=== PATIENT | female | born 1975 | race Caucasian/White ===

== ENCOUNTER → 2021-02-01 | Outpatient (CLI) | payer OTHER ==
[~2021-02-01] MED LIST: DOCU-109 PO; FERR325T14 PO; GABA300C18 PO; MEDR10TA PO; OMEP20TA8 PO; OXYC1TAB15 PO
== END ==
LOC: LAB 10:13
PROVIDERS: ATTEND Obstetrics & Gynecology
DX: Z01.812 Encounter for preprocedural laboratory examination (principal); Z20.822 Contact with and (suspected) exposure to COVID-19
CPT/HCPCS: U0003; U0005

== ENCOUNTER 2021-02-04 08:25 | Observation (INO) | payer OTHER ==
[2021-02-04] VITALS (11 sets, daily range): BP systolic 85–106; BP diastolic 42–63
[~2021-02-04] VITALS: Ht 167.6 cm; Wt 90.0 kg
[~2021-02-04 08:25] MED LIST changes: -DOCU-109 PO; -GABA300C18 PO; +IV RINGERS,LACTATED 1000ML 1,000 ML IV SCH; -OXYC1TAB15 PO; +PROCHLORPERAZINE 10 MG/2 ML VIAL. IVP PRN; +fentaNYL PF VIAL 100 MCG/2 ML VIAL IVP PRN
[2021-02-04] MEDS ORDERED: PROPOFOL 10 MG/ML (20ML) VIAL. IV ONE (09:11)
[2021-02-04] MEDS ORDERED: LIDOCAINE 2% PF 5 ML VIAL. ONE (09:11)
[2021-02-04] MEDS ORDERED: SUCCINYLCHOLINE 200 MG/10 ML VIAL. ONE (09:12)
[2021-02-04] MEDS ORDERED: fentaNYL PF VIAL 100 MCG/2 ML VIAL ONE (09:12)
[2021-02-04] MEDS ORDERED: ROCURONIUM 50 MG/5 ML VIAL. ONE (09:12)
[2021-02-04 09:24] LABS: BASO # 0.1 x10^3/uL (0.0-0.2); BASO % 3 % (0-3); EOS # 0.2 x10^3/uL (0.0-0.7); EOS % 4 % (0-3); HEMATOCRIT 32.9 % (36.0-47.0); HEMOGLOBIN 10.5 g/dL (12.0-15.5); LYMPH # 1.3 x10^3/uL (1.0-4.8); LYMPH % 28 % (24-48); MEAN CORPUSCULAR HEMOGLOBIN 26 pg (25-35); MEAN CORPUSCULAR HGB CONC 32 g/dL (31-37); MEAN CORPUSCULAR VOLUME 81 fL (79-100); MONO # 0.4 x10^3/uL (0.0-1.1); MONO % 10 % (0-9); NEUT # 2.6 x10^3/uL (1.8-7.7); NEUT % 56 % (31-73); PLATELET COUNT 229 x10^3/uL (140-400); RED BLOOD COUNT 4.05 x10^6/uL (3.50-5.40); RED CELL DISTRIBUTION WIDTH 19.6 % (11.5-14.5); WHITE BLOOD COUNT 4.6 x10^3/uL (4.0-11.0)
[2021-02-04] MEDS ORDERED: LIDOCAINE 1%/EPI 1:100,000 20 ML VIAL. ONE (10:06)
[2021-02-04] MEDS ORDERED: INDIGOTINDISULFONATE SODIUM 40 MG/5 ML AMPUL. ONE (10:06)
[2021-02-04] MEDS ORDERED: DESFLURANE 31 TO 60 MINUTES IH ONE (10:49)
[2021-02-04] MEDS ORDERED: DEXAMETHASONE SOD PHOS 4 MG/ML VIAL ONE (10:49)
[2021-02-04] MEDS ORDERED: ONDANSETRON PF 4 MG/2 ML VIAL. ONE (11:08)
[2021-02-04] MEDS ORDERED: NEOSTIGMINE METHYLSULFATE 5 MG/5 ML SYRINGE. ONE (11:08)
[2021-02-04] MEDS ORDERED: GLYCOPYRROLATE 1 MG/5 ML VIAL. ONE (11:08)
[2021-02-04] MEDS ORDERED: ESTROGENS, CONJ VAGINAL CREAM 30GM TUBE. ONE (11:18)
--- NOTE | 2021-02-04 11:34 | PDOC ---
BRIEF OPERATIVE NOTE Date: February 04, 2021 Pre-Op Diagnosis 1. Fibroids 2. Menorrhagia 3. VERONICA 1 Post-Op Diagnosis SAme Procedure Performed TVH & BSO Surgeon Dr. Pavon Transportation Department Head Gold And Silver Assayer: Jake Anesthesia Type: General Blood Loss 50 ml Specimens Obtained cervix, uterus, lon. fallopian tubes and ovaries Findings enlarged uterus, VERONICA 1; nml fallopian tubes and ovaries lon. Complications none Operative Note see dictation JULIA PAVON Jr, MD February 04, 2021 11:34
[2021-02-04] MEDS ORDERED: ONDANSETRON PF 4 MG/2 ML VIAL. IV PRN (11:45)
[2021-02-04] MEDS ORDERED: ZOLPIDEM 5 MG TABLET. PO PRN (11:45)
[2021-02-04] MEDS ORDERED: DEXTROSE 50% 25 GM / 50ML DISP.SYRIN. IV PRN (11:45)
[2021-02-04] MEDS ORDERED: CALCIUM CARBONATE 500 MG TAB.CHEW PO PRN (11:45)
[2021-02-04] MEDS ORDERED: SIMETHICONE 80 MG TAB.CHEW PO PRN (11:45)
[2021-02-04] MEDS ORDERED: OPIUM/BELLADONNA 30/16.2MG SUPP.RECT. PR PRN (11:45)
[2021-02-04] MEDS ORDERED: diphenhydrAMINE HCL 25 MG CAPSULE PO PRN (11:45)
[2021-02-04] MEDS ORDERED: 0.9 % SODIUM CHLORIDE 10 ML DISP.SYRIN. IV PRN (11:45)
[2021-02-04] MEDS ORDERED: diphenhydrAMINE 50 MG/ML VIAL IV PRN (11:45)
[2021-02-04] MEDS ORDERED: PROCHLORPERAZINE 10 MG/2 ML VIAL. IV PRN (11:45)
[2021-02-04] MEDS ORDERED: MORPHINE SULFATE 2 MG/ML VIAL. ONE (12:00)
[2021-02-04] MEDS: MORPHINE SULFATE 2 MG/ML VIAL. IVP PRN ×2 (12:03→12:16)
[2021-02-04] MEDS: HYDROmorphone 2 MG/ML VIAL IVP PRN ×2 (12:12→12:23)
[2021-02-04] MEDS ORDERED: HYDROmorphone 2 MG/ML VIAL ONE (12:27)
[2021-02-04] MEDS: KETOROLAC 30 MG/ML VIAL. IV PRN ×2 (14:08→22:49)
[2021-02-04] MEDS: GABAPENTIN 300 MG CAPSULE. PO SCH ×2 (14:08→21:50)
--- NOTE | 2021-02-04 14:24 | OP ---
DATE OF SURGERY: 02/04/2021 PREOPERATIVE DIAGNOSES: 1. Fibroids. 2. Menorrhagia. 3. Cervical intraepithelial neoplasia, grade 1. POSTOPERATIVE DIAGNOSES: 1. Fibroids. 2. Menorrhagia. 3. Cervical intraepithelial neoplasia, grade 1. PROCEDURE: TVH and BSO. SURGEON: Bhanu Greenberg MD. MUSEUM EXHIBIT TECHNICIAN: Jake. ANESTHESIA: .GETA ESTIMATED BLOOD LOSS: 50 mL. COMPLICATIONS: None. FINDINGS: Enlarged uterus, VERONICA 1/cervical dysplasia. Normal fallopian tubes and ovaries bilaterally. SUMMARY: A 46-year-old with a long history of fibroids and heavy menstrual bleeding, unresponsive to medical treatment. The patient will require hysterectomy. She voiced clear understanding to proceed with a TVH and BSO. DESCRIPTION OF PROCEDURE: The patient was taken to surgery suite and placed in dorsal lithotomy position. She was prepped with Betadine solution and draped in a sterile fashion. After adequate anesthesia, weighted speculum and curved Rajesh were placed vaginally. The cervix was grasped on the anterior lip and posterior lip with Ayesha clamps. Cervix was injected with 1% lidocaine with epinephrine in a circumferential manner. Bovie cautery was utilized to circumscribe the cervix. The vaginal wall mucosa was dissected away from the lower uterine segment using blunt dissection and moist Ray-Darryl. Parametrial tissue was clamped bilaterally with curved Devika clamps, cut and suture ligated with 2-0 Vicryl suture. The posterior cul-de-sac was entered sharply with curved Jenkins scissors. The anterior cul-de-sac was entered sharply with Metzenbaum scissors. The uterosacral ligaments and cardinal ligaments were clamped bilaterally, cut, and suture ligated. Additional pedicle was taken just adjacent to the uterus, which was clamped with curved Devika clamps bilaterally, cut, and suture ligated. The uterus was then retroverted. The round ligament and the uteroovarian pedicles were then clamped bilaterally, cut and suture ligated. The cervix and the uterus was then removed in its entirety. The right infundibulopelvic ligament was clamped with curved Devika clamp, cut and suture ligated. Same process took place of the left adnexa. A modified Holliday's culdoplasty was performed incorporating the uterosacral ligaments bilaterally. The vaginal cuff was reapproximated using 2-0 Vicryl suture in [id number]-[id number] manner. Premarin soaked vaginal packing was placed. Juarez catheter was placed ____ clear yellow urine. The patient tolerated the procedure well and was taken to recovery room in stable condition. Sponge and needle count correct x 3. VIKTORIYA/JEREMI/[facility] [place] VIKTORIYA/teri TID: [id number]
[2021-02-04] MEDS: oxyCODONE/APAP 5/325 1 TAB TABLET PO PRN (17:14)
[2021-02-05 03:01] VITALS: BP 91/41
--- NOTE | 2021-02-05 05:37 | NUR ---
Juarez Catheter discontinued without difficulty. Packing discontinued without difficulty. Patient tolerated procedure without any C/O pain.
[2021-02-05] MEDS: GABAPENTIN 300 MG CAPSULE. PO SCH ×2 (05:50→14:01)
[2021-02-05 06:19] VITALS: BP 113/53
[2021-02-05 06:31] LABS: BASO # 0.1 x10^3/uL (0.0-0.2); BASO % 2 % (0-3); EOS # 0.1 x10^3/uL (0.0-0.7); EOS % 1 % (0-3); HEMOGLOBIN 8.9 g/dL (12.0-15.5); LYMPH # 1.4 x10^3/uL (1.0-4.8); LYMPH % 18 % (24-48); MEAN CORPUSCULAR HEMOGLOBIN 26 pg (25-35); MEAN CORPUSCULAR HGB CONC 32 g/dL (31-37); MEAN CORPUSCULAR VOLUME 82 fL (79-100); MONO # 0.7 x10^3/uL (0.0-1.1); MONO % 9 % (0-9); NEUT # 5.6 x10^3/uL (1.8-7.7); NEUT % 70 % (31-73); PLATELET COUNT 202 x10^3/uL (140-400); RED BLOOD COUNT 3.42 x10^6/uL (3.50-5.40); RED CELL DISTRIBUTION WIDTH 19.2 % (11.5-14.5)
[2021-02-05 07:55] VITALS: BP 107/58
[2021-02-05] MEDS: oxyCODONE/APAP 5/325 1 TAB TABLET PO PRN ×2 (08:13→16:42)
[2021-02-05 11:00] VITALS: BP 86/45
--- NOTE | 2021-02-05 13:10 | PDOC ---
SURGICAL PROGRESS NOTE DATE: 02/05/21 TIME: 13:08 Subjective Pt. feeling well. Pain controlled. She is ambulating, voiding and tolerating regular diet. Vital Signs Vital Signs Date Time Temp Pulse Resp B/P (MAP) Pulse Ox O2 Delivery O2 Flow Rate FiO2 02/05/21 11:00 98.6 89 18 86/45 (59) 94 Nasal Cannula 98.6 02/05/21 07:45 2.0 I&O Intake and Output 02/05/21 06:59 Intake Total 4350 ml Output Total 620 ml Balance 3730 ml Intake Oral 700 ml IV Total 3050 ml Other 600 ml Output Urine Total 570 ml Estimated Blood Loss 50 ml PATIENT HAS A ESPINAL: No General: Alert, Oriented X3, Cooperative HEENT: Atraumatic Lungs: Clear to auscultation Heart: Regular rate Abdomen: Normal bowel sounds, Soft, No tenderness, No masses Psych/Mental Status: Mental status NL Labs Laboratory Tests Test 02/04/21 07:58 02/04/21 08:55 02/05/21 06:15 Bedside Urine HCG, Qualitative Hcg negative (Negative) White Blood Count 4.6 x10^3/uL (4.0-11.0) 8.0 x10^3/uL (4.0-11.0) Red Blood Count 4.05 x10^6/uL (3.50-5.40) 3.42 x10^6/uL (3.50-5.40) Hemoglobin 10.5 g/dL (12.0-15.5) 8.9 g/dL (12.0-15.5) Hematocrit 32.9 % (36.0-47.0) 28.0 % (36.0-47.0) Mean Corpuscular Volume 81 fL (79-100) 82 fL (79-100) Mean Corpuscular Hemoglobin 26 pg (25-35) 26 pg (25-35) Mean Corpuscular Hemoglobin Concent 32 g/dL (31-37) 32 g/dL (31-37) Red Cell Distribution Width 19.6 % (11.5-14.5) 19.2 % (11.5-14.5) Platelet Count 229 x10^3/uL (140-400) 202 x10^3/uL (140-400) Neutrophils (%) (Auto) 56 % (31-73) 70 % (31-73) Lymphocytes (%) (Auto) 28 % (24-48) 18 % (24-48) Monocytes (%) (Auto) 10 % (0-9) 9 % (0-9) Eosinophils (%) (Auto) 4 % (0-3) 1 % (0-3) Basophils (%) (Auto) 3 % (0-3) 2 % (0-3) Neutrophils # (Auto) 2.6 x10^3/uL (1.8-7.7) 5.6 x10^3/uL (1.8-7.7) Lymphocytes # (Auto) 1.3 x10^3/uL (1.0-4.8) 1.4 x10^3/uL (1.0-4.8) Monocytes # (Auto) 0.4 x10^3/uL (0.0-1.1) 0.7 x10^3/uL (0.0-1.1) Eosinophils # (Auto) 0.2 x10^3/uL (0.0-0.7) 0.1 x10^3/uL (0.0-0.7) Basophils # (Auto) 0.1 x10^3/uL (0.0-0.2) 0.1 x10^3/uL (0.0-0.2) Laboratory Tests Test 02/05/21 06:15 White Blood Count 8.0 x10^3/uL (4.0-11.0) Red Blood Count 3.42 x10^6/uL (3.50-5.40) Hemoglobin 8.9 g/dL (12.0-15.5) Hematocrit 28.0 % (36.0-47.0) Mean Corpuscular Volume 82 fL (79-100) Mean Corpuscular Hemoglobin 26 pg (25-35) Mean Corpuscular Hemoglobin Concent 32 g/dL (31-37) Red Cell Distribution Width 19.2 % (11.5-14.5) Platelet Count 202 x10^3/uL (140-400) Neutrophils (%) (Auto) 70 % (31-73) Lymphocytes (%) (Auto) 18 % (24-48) Monocytes (%) (Auto) 9 % (0-9) Eosinophils (%) (Auto) 1 % (0-3) Basophils (%) (Auto) 2 % (0-3) Neutrophils # (Auto) 5.6 x10^3/uL (1.8-7.7) Lymphocytes # (Auto) 1.4 x10^3/uL (1.0-4.8) Monocytes # (Auto) 0.7 x10^3/uL (0.0-1.1) Eosinophils # (Auto) 0.1 x10^3/uL (0.0-0.7) Basophils # (Auto) 0.1 x10^3/uL (0.0-0.2) Assessment/Plan A: POD#1 s/p TVH & BSO P: D/c home tomorrow. Justicifation of Admission Dx: Justifications for Admission: Justification of Admission Dx: Yes JULIA AYERS Jr, MD February 05, 2021 13:10
[2021-02-05] MEDS ORDERED: OXYC1TAB15 PO (13:13)
[2021-02-05] MEDS ORDERED: GABA300C18 PO (13:13)
[2021-02-05] MEDS ORDERED: DOCU-109 PO (13:13)
--- NOTE | 2021-02-05 13:14 | DISCH ---
DISCHARGE INSTRUCTIONS Condition on Discharge Condition on Discharge: Stable Activity After Discharge Activity Instructions for Disc: Activity as tolerated Lifting Instructions after Dis: No heavy lifting Driving Instructions after Dis: No driving for 2 weeks Diet after Discharge Diet after Discharge: Regular Contacting the DRBrianda after DC Call your doctor for: Concerns you may have Follow-Up Follow up with: Dr. Pavon in 2 wks. JULIA PAVON Jr, MD February 05, 2021 13:14
[2021-02-05 16:50] VITALS: BP 104/48
--- NOTE | 2021-02-05 17:45 | NUR ---
Pt discharged home in stable condition, VS/WNL, Home care, follow up care/appt prescheduled for 2 week, RX and discharge instruction sheet reviewed and sent with pt. Pt escorted to exit per w/c with RN and pt's daughter.
--- NOTE | 2021-02-10 09:08 | PATHOLOGY ---
[facility] Accession Number: [id number] . 01 Material submitted: . uterus - CERVIX UTERUS BILATERAL TUBES AND OVARIES . 01 Clinical history: . MENORRHAGIA FIBROIDS CERVICAL ABNORMAL UTERINE BLEEDING HYSTERECTOMY . 02 Diagnosis: Uterus and detached bilateral fallopian tubes and ovaries, total vaginal hysterectomy with bilateral salpingo-oophorectomy: - Adenomyosis, uterine corpus, extensive, with myometrial hypertrophy (uterine weight 156 grams). 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 - Chronic cervicitis with focal squamous metaplasia. - Nabothian cysts, cervix. - Slightly disordered inactive/weakly proliferative endometrium. - Leiomyoma, uterine corpus, measuring 0.3 cm. - Paratubal cysts, bilateral. - Cystic follicles of bilateral ovaries. . (JPM:mml;deni; 02/09/2021) [facility] 02/09/2021 1506 Local . 02 Comment: The entire squamocolumnar junction is submitted for histologic evaluation. There are foci consistent with mild dysplasia with cellular changes of HPV effect (VERONICA I). There is no high grade VERONICA or evidence of malignancy. (JPM:deni; 02/09/2021) . 02 Electronically signed: . Paul Mora MD, Pathologist NPI- [id number] . 01 Gross description: . Fixative: Formalin Labeled: Cervix, uterus, bilateral tubes and ovaries Specimen received: A previously opened uterus and cervix with undesignated detached bilateral fimbriated fallopian tubes connected to the detached bilateral ovaries Uterus weight: 156 g Uterus: 9.5 cm superior to inferior, 7.0 cm cornu to cornu, and 5.0 cm anterior to posterior Serosa: Smooth pink-james Ectocervix: Glistening pink-james measuring 4.0 cm in diameter Cervical os: Congested pink-james/patent measuring 1.0 cm in diameter Endocervical canal: [place]-james, measuring 1.5-2.5 centimeters in length and 0.5-1.0 cm in width, and 0.1-0.2 cm in thickness Endometrial cavity: [place]-james measuring 5.0 cm in length and 2.3 cm in width Endometrial thickness: 0.1-0.2 cm Myometrial thickness: 2.0-2.3 cm Lesions/abnormalities: Sectioning of the cervix reveals pink-james cut surfaces with multiple cystic spaces ranging from 0.4-0.7 cm filled with thick clear gel material. Sectioning of the uterus reveals a trabeculated pink-james cut surface with 2 focal white whirl pattern lesions ranging from 0.2-0.3 cm. Fallopian tube #1: 2.0 cm in length 0.4-0.6 cm in diameter with attached fimbria measuring 2.0 x 1.0 x 1.0 cm. Fallopian tube #1 appearance: [place]-james with multiple paratubal cysts ranging from a 0.4-0.6 cm filled with clear/hemorrhagic fluid Fallopian tube #2: 4.0 cm in length 0.7-1.3 cm in diameter with attached fimbria that measures 2.0 x 1.0 x 0.6 cm Fallopian tube #2 appearance: Dilated congested/hemorrhagic pink-james with a paratubal cyst that measures 0.6 x 0.6 x 0.5 cm filled with hemorrhagic fluid Ovary #1: 3 g, measuring 3.0 x 2.0 x 1.0 cm Ovary #1 appearance: [place]-james. Sectioning reveals pink-james cut surfaces with a cyst measuring 1.2 x 0.8 0.5 cm filled with clear fluid. Ovary #2: 5.0 g, 3.0 x 2.5 x 2.5 cm Ovary #2 appearance: [place]-james and lobulated. Sectioning reveals pink-james cut surfaces with 3 cysts ranging from 0.5-1.0 cm filled with clear fluid. . [employer] Education Teacher sections are submitted as follows: A1 12:00 cervix A2 6:00 cervix A3 anterior endomyometrium A4 posterior endomyometrium A5 fallopian tube #1 A6 fallopian tube #2 A7 ovary #1 A8 ovary #2 ([facility]; 02/04/2021) . After initial microscopic examination, the remainder of the cervix and additional resources representative sections are submitted as follows: . A9-A11 12:00 to 3:00 cervix A12-A14 3:00 to 6:00 cervix A15-A16 6:00 to 9:00 cervix A17-A19 9:00 to 12:00 cervix A20 anterior endometrium A21 posterior endometrium. ([facility]; 02/08/2021) J/[facility] 02/08/2021 1349 Local . 02 Pathologist provided ICD-10: N80.0, N72, N87.0, N88.8, N85.8, D25.9, N83.8 . 02 CPT . 665619 Specimen Comment: A courtesy copy of this report has been sent to [phone] Specimen Comment: Report sent to Performed at: 01 [facility] [address], [place] [id number] MD Bogdan Dawson MD Phone: [phone] Performed at: 02 [facility] [address], [place] [id number] MD Paul Mora MD Phone: [phone]
== END 2021-02-05 17:45 | disposition home or self-care (01) ==
LOC: SURG 08:25 → EDUNIT# 11:00 → 3 SO LND 11:34
PROVIDERS: ADMIT Obstetrics & Gynecology; ATTEND Obstetrics & Gynecology
DX: D25.9 Leiomyoma of uterus, unspecified (principal); N92.0 Excessive and frequent menstruation with regular cycle; N87.0 Mild cervical dysplasia
CPT/HCPCS: 36415; 58262; 81025; 85025; 86850; 86900; 86901; 88309; 96374; 96376; A4314; A4930; G0378; G0379; J0330; J0690; J1100; J1170; J1885; J2270; J2405; J2704; J2710; J3010; J3490